=== PATIENT | female | born 1965 | race American Indian/Alaskan Native ===

== ENCOUNTER 2018-11-30 12:15 | Inpatient (IN) | payer OTHER ==
--- NOTE | 2018-11-30 12:24 | Emergency Department Report ---
- General Stated complaint: CHEST PAIN/SEIZURES Time Seen by Provider: 11/30/18 12:15 Source: patient Mode of arrival: Ambulatory - History of Present Illness Initial comments: Patient is a 53-year-old female that presents emergency room with complaints of weakness, dizziness, chest pain and elevated blood pressure. Patient was br ought in by EMS. Patient states her symptoms started 30 minutes ago. Patient denies inability to move any side of her body but complains more of a generalized weakness. Patient states she also feels slow to be able to respond. Patient states her chest pain is a 3 out of 10 and is in the center chest and nonradiating. Patient states the pain is better with rest and worse with exertion. MD Complaint: generalized weakness -: Sudden Location: generalized - Related Data Home Medications Medication Instructions Recorded Confirmed Last Taken Atenolol [Tenormin] 12.5 mg PO DAILY 11/30/18 11/30/18 1 Week Ago ~11/23/18 Allergies Allergy/AdvReac Type Severity Reaction Status Date / Time No Known Allergies Allergy Unverified 10/31/14 19:12 ED Review of Systems ROS: Stated complaint: CHEST PAIN/SEIZURES Other details as noted in HPI Constitutional: weakness. denies: chills, fever Eyes: denies: eye pain, eye discharge, vision change ENT: denies: ear pain, throat pain Respiratory: denies: cough, shortness of breath, wheezing Cardiovascular: chest pain. denies: palpitations Endocrine: no symptoms reported Gastrointestinal: denies: abdominal pain, nausea, diarrhea Genitourinary: denies: urgency, dysuria, discharge Musculoskeletal: denies: back pain, joint swelling, arthralgia Skin: denies: rash, lesions Neurological: weakness, vertigo. denies: headache, paresthesias Psychiatric: denies: anxiety, depression Hematological/Lymphatic: denies: easy bleeding, easy bruising ED Past Medical Hx - Past Medical History Previous Medical History?: Yes Hx Hypertension: Yes Additional medical history: IBS - Surgical History Past Surgical History?: Yes Additional Surgical History: tubal ligation - Family History Family history: no significant - Social History Smoking Status: Never Smoker Substance Use Type: Alcohol - Medications Home Medications: Home Medications Medication Instructions Recorded Confirmed Last Taken Type Atenolol [Tenormin] 12.5 mg PO DAILY 01/16/19 01/16/19 1 Week Ago History ~11/23/18 ED Physical Exam - General Limitations: No Limitations General appearance: alert, in no apparent distress - Head Head exam: Present: atraumatic, normocephalic - Eye Eye exam: Present: normal appearance - ENT ENT exam: Present: mucous membranes moist - Neck Neck exam: Present: normal inspection - Respiratory Respiratory exam: Present: normal lung sounds bilaterally. Absent: respiratory distress - Cardiovascular Cardiovascular Exam: Present: regular rate, normal rhythm. Absent: systolic mur mur, diastolic murmur, rubs, gallop - GI/Abdominal GI/Abdominal exam: Present: soft, normal bowel sounds - Extremities Exam Extremities exam: Present: normal inspection - Back Exam Back exam: Present: normal inspection - Neurological Exam Neurological exam: Present: alert, oriented X3 - Psychiatric Psychiatric exam: Present: normal affect, normal mood - Skin Skin exam: Present: warm, dry, intact, normal color. Absent: rash - Assessment Assessment Interval: Baseline - Level of Consciousness 1a. Level of Consciousness: alert/keenly responsive - LOC Questions 1b. LOC Questions: answers both correctly - LOC Command 1c. LOC Commands: performs tasks correctly - Best Gaze 2. Best Gaze: normal - Visual 3. Visual: no visual loss - Facial Palsy 4. Facial Palsy: normal symmetrical movement - Motor Arm 5b. Motor Arm Right: no drift 5a. Motor Arm Left: no drift - Motor Leg 6b. Motor Leg Right: no drift 6a. Motor Leg Left: no drift - Limb Ataxia 7. Limb Ataxia: absent - Sensory 8. Sensory: normal - Best Language 9. Best Language: no aphasia - Dysarthria 10. Dysarthria: normal - Extinction and Inattention 11. Extinction/Inattention: no abnormality - Scoring Total Score: 0 Stroke Severity: No Stroke Symptoms ED Course Vital Signs 11/30/18 11/30/18 11/30/18 12:37 12:45 12:51 Temperature 98.6 F Pulse Rate 76 80 69 Respiratory 14 16 14 Rate Blood Pressure 181/103 Blood Pressure 181/103 [Left] O2 Sat by Pulse 99 99 Oximetry 11/30/18 12:52 Temperature Pulse Rate Respiratory 14 Rate Blood Pressure Blood Pressure [Left] O2 Sat by Pulse 99 Oximetry - Reevaluation(s) Reevaluation #1: Initial evaluation done. Patient complaining of chest pain, dizziness and weakness. Culture initiated due the patient's symptoms and blood pressure 11/30/18 12:15 - Consultations Consultation #1: Neurologist consult. Discussed case with Dr. Avina and Dr. Avina see patient now 11/30/18 12:34 Dr. Hanna saw patient. Dr. Avina recommends admission and further stroke workup and x-ray patient had a TIA today and does not require TPA but will require further stroke workup 11/30/18 12:51 Consultation #2: Possible is counseled for admission. Hospitalist to admit patient and assume c are of patient. Bridging orders are placed 11/30/18 13:59 ED Medical Decision Making - Lab Data Result diagrams: 11/30/18 12:32 11/30/18 12:32 - EKG Data -: EKG Interpreted by Nd EKG shows normal: sinus rhythm, axis, intervals, QRS complexes, ST-T waves Rate: normal - Radiology Data Radiology results: report reviewed HEAD CT WITHOUT CONTRAST INDICATION: Neurologic deficits less than 6 hours or symptoms present upon awakening. 98N. COMPARISON: None similar. FINDINGS: Noncontrast head CT demonstrates symmetric ventricles and sulci without acute or recent infarct, hemorrhage, mass effect or midline shift. No abnormal extra-axial fluid collections. Posterior fossa structures and basilar cisterns within normal limits. Clear imaged paranasal sinuses. Few radiopaque dental material. Intact calvarium. Normal scalp soft tissues. CONCLUSION: No acute intracranial CT abnormality with few other findings, as above. MRI is more sensitive for detection of acute infarct and may be useful for further evaluation in the setting of a focal neurologic deficit. - Medical Decision Making Patient is a 53-year-old female that presents with chest pain, weakness, dizziness and elevated blood pressure. Patient's blood pressure improved on its own. Patella neuro consult. Neurologist states patient had a TIA and recommends admission. Labs unremarkable. Cardiac enzymes negative. Cardiac workup negative. Patient admitted to the hospitalist service for further evaluation treatment. She'll require stroke as well as a cardiac ACS workup. - Differential Diagnosis cp. acs. htn. tia. weakness Critical Care Time: Yes Critical care attestation.: If time is entered above; I have spent that time in minutes in the direct care of this critically ill patient, excluding procedure time. Critical Care Time: 55 minutes ED Disposition Clinical Impression: TIA (transient ischemic attack), Hypertensive emergency, no CHF, Dizziness Chest pain Qualifiers: Chest pain type: unspecified Qualified Code(s): R07.9 - Chest pain, unspecified Disposition: DC-09 OP ADMIT IP TO THIS HOSP Is pt being admited?: Yes Does the pt Need Aspirin: No Condition: Critical Time of Disposition: 13:54
--- NOTE | 2018-11-30 12:39 | Cat Scan Report ---
HEAD CT WITHOUT CONTRAST INDICATION: Neurologic deficits less than 6 hours or symptoms present upon awakening. 98N. COMPARISON: None similar. FINDINGS: Noncontrast head CT demonstrates symmetric ventricles and sulci without acute or recent infarct, hemorrhage, mass effect or midline shift. No abnormal extra-axial fluid collections. Posterior fossa structures and basilar cisterns within normal limits. Clear imaged paranasal sinuses. Few radiopaque dental material. Intact calvarium. Normal scalp soft tissues. CONCLUSION: No acute intracranial CT abnormality with few other findings, as above. MRI is more sensitive for detection of acute infarct and may be useful for further evaluation in the setting of a focal neurologic deficit. I phoned the above results to Dr. Lee in the ER, 12:28 PM, 11/30/2018 Thank you for the opportunity to participate in this patient's care.
[2018-11-30 12:41] LABS: Basophils # (Auto) 0.1 K/mm3 (0.0-0.1); Basophils % (Auto) 0.7 % (0.0-1.8); Eosinophils # (Auto) 0.2 K/mm3 (0.0-0.4); Eosinophils % (Auto) 2.3 % (0.0-4.3); Hematocrit 49.6 % (30.3-42.9); Hemoglobin 16.5 gm/dl (10.1-14.3); Lymphocytes # (Auto) 2.8 K/mm3 (1.2-5.4); Lymphocytes % (Auto) 36.7 % (13.4-35.0); Mean Corpuscular HGB Conc 33 % (30-34); Mean Corpuscular Volume 86 fl (79-97); Monocytes # (Auto) 0.6 K/mm3 (0.0-0.8); Monocytes % (Auto) 8.5 % (0.0-7.3); Platelet Count 279 K/mm3 (140-440); Red Blood Count 5.79 M/mm3 (3.65-5.03); Red Cell Distribution Width 14.1 % (13.2-15.2)
[2018-11-30 12:52] LABS: INR 0.9 (0.87-1.13); Thrombin Time 17.2 Sec. (15.1-19.6)
[2018-11-30 13:16] LABS: BUN/Creatinine Ratio 16; Blood Urea Nitrogen 11 mg/dL (7-17); Calcium 9.2 mg/dL (8.4-10.2); Hemolysis Index 8
[2018-11-30] MEDS ORDERED: ASPIRIN PO ONE (13:50)
--- NOTE | 2018-11-30 22:05 | History and Physical Report ---
History of Present Illness Date of examination: 11/30/18 Date of admission: 11/30/18 13:58 Chief complaint: Dizziness and high blood pressure for 1 day History of present illness: 53-year-old -[place] female with history of hypertension not taking her medications regularly comes in for dizziness and feeling weak. Code stroke was called by the emergency room. Tele neurologist felt that she had a TIA. On further history taking patient had dizziness and at the same time her blood pressure was 210/110. The dizziness resolved after the blood pressure was brought under reasonable control. No focal deficits. No slurred speech. No shortness of breath. Past Medical History Previous Medical History?: Yes Hx Hypertension: Yes Additional medical history: IBS Surgical History Past Surgical History?: Yes Additional Surgical History: tubal ligation Family History Family history: no significant Social History Smoking Status: Never Smoker Substance Use Type: Alcohol Medications Home Medications: Home Medications Medication Instructions Recorded Confirmed Last Taken Type Atenolol [Tenormin] 12.5 mg PO DAILY 11/30/18 11/30/18 1 Week Ago History ~11/23/18 Review of Systems ROS: Stated complaint: CHEST PAIN/SEIZURES Other details as noted in HPI Constitutional: weakness. denies: chills, fever Eyes: denies: eye pain, eye discharge, vision change ENT: denies: ear pain, throat pain Respiratory: denies: cough, shortness of breath, wheezing Cardiovascular: chest pain. denies: palpitations Endocrine: no symptoms reported Gastrointestinal: denies: abdominal pain, nausea, diarrhea Genitourinary: denies: urgency, dysuria, discharge Musculoskeletal: denies: back pain, joint swelling, arthralgia Skin: denies: rash, lesions Neurological: weakness, vertigo. denies: headache, paresthesias Psychiatric: denies: anxiety, depression Hematological/Lymphatic: denies: easy bleeding, easy bruising Medications and Allergies Allergies Allergy/AdvReac Type Severity Reaction Status Date / Time No Known Allergies Allergy Unverified 10/31/14 19:12 Home Medications Medication Instructions Recorded Confirmed Last Taken Type Atenolol [Tenormin] 12.5 mg PO DAILY 11/30/18 11/30/18 1 Week Ago History ~11/23/18 Exam - Physical Exam Narrative exam: Lying in bed comfortably - Constitutional Vitals: Temp Pulse Resp BP Pulse Ox 98 F 77 17 161/86 98 11/30/18 19:16 11/30/18 19:16 11/30/18 20:18 11/30/18 19:16 11/30/18 21:33 General appearance: Present: no acute distress, well-nourished - EENT Eyes: Present: PERRL ENT: hearing intact, clear oral mucosa - Neck Neck: Present: supple, normal ROM - Respiratory Respiratory effort: normal Respiratory: bilateral: CTA - Cardiovascular Heart rate: 78 Rhythm: regular Heart Sounds: Present: S1 & S2. Absent: rub, click - Extremities Extremities: no ischemia, pulses intact, pulses symmetrical, No edema Peripheral Pulses: within normal limits - Abdominal General gastrointestinal: Present: soft, non-tender, non-distended, normal bowel sounds Female genitourinary: Present: normal - Integumentary Integumentary: Present: clear, warm, dry - Musculoskeletal Musculoskeletal: gait normal, strength equal bilaterally - Psychiatric Psychiatric: appropriate mood/affect, intact judgment & insight - Neurologic Neurologic: CNII-XII intact, moves all extremities - Allied Health Allied health notes reviewed: nursing, case management Results - Labs CBC & Chem 7: 11/30/18 12:32 11/30/18 12:32 Labs: Laboratory Last Values WBC 7.6 K/mm3 (4.5-11.0) 11/30/18 12:32 RBC 5.79 M/mm3 (3.65-5.03) H 11/30/18 12:32 Hgb 16.5 gm/dl (10.1-14.3) H 11/30/18 12:32 Hct 49.6 % (30.3-42.9) H 11/30/18 12:32 MCV 86 fl (79-97) 11/30/18 12:32 MCH 29 pg (28-32) 11/30/18 12:32 MCHC 33 % (30-34) 11/30/18 12:32 RDW 14.1 % (13.2-15.2) 11/30/18 12:32 Plt Count 279 K/mm3 (140-440) 11/30/18 12:32 Lymph % (Auto) 36.7 % (13.4-35.0) H 11/30/18 12:32 Bacon % (Auto) 8.5 % (0.0-7.3) H 11/30/18 12:32 Eos % (Auto) 2.3 % (0.0-4.3) 11/30/18 12:32 Baso % (Auto) 0.7 % (0.0-1.8) 11/30/18 12:32 Lymph # 2.8 K/mm3 (1.2-5.4) 11/30/18 12:32 Bacon # 0.6 K/mm3 (0.0-0.8) 11/30/18 12:32 Eos # 0.2 K/mm3 (0.0-0.4) 11/30/18 12:32 Baso # 0.1 K/mm3 (0.0-0.1) 11/30/18 12:32 Seg Neutrophils % 51.8 % (40.0-70.0) 11/30/18 12:32 Seg Neutrophils # 4.0 K/mm3 (1.8-7.7) 11/30/18 12:32 PT 12.5 Sec. (12.2-14.9) 11/30/18 12:33 INR 0.90 (0.87-1.13) 11/30/18 12:33 APTT 20.0 Sec. (24.2-36.6) L 11/30/18 12:33 Thrombin Time 17.2 Sec. (15.1-19.6) 11/30/18 12:33 Sodium 139 mmol/L (137-145) 11/30/18 12:32 Potassium 4.1 mmol/L (3.6-5.0) 11/30/18 12:32 Chloride 103.1 mmol/L (98-107) 11/30/18 12:32 Carbon Dioxide 26 mmol/L (22-30) 11/30/18 12:32 Anion Gap 14 mmol/L 11/30/18 12:32 BUN 11 mg/dL (7-17) 11/30/18 12:32 Creatinine 0.7 mg/dL (0.7-1.2) 11/30/18 12:32 Estimated GFR > 60 ml/min 11/30/18 12:32 BUN/Creatinine Ratio 16 % 11/30/18 12:32 Glucose 109 mg/dL (65-100) H 11/30/18 12:32 POC Glucose 72 (70-105) 11/30/18 21:47 Lactic Acid 1.50 mmol/L (0.7-2.0) 11/30/18 12:42 Calcium 9.2 mg/dL (8.4-10.2) 11/30/18 12:32 Troponin T < 0.010 ng/mL (0.00-0.029) 11/30/18 12:32 Short CBC 11/30/18 Range/Units 12:32 WBC 7.6 (4.5-11.0) K/mm3 Hgb 16.5 H (10.1-14.3) gm/dl Hct 49.6 H (30.3-42.9) % Plt Count 279 (140-440) K/mm3 BMP 11/30/18 12:32 Sodium 139 Potassium 4.1 Chloride 103.1 Carbon Dioxide 26 BUN 11 Creatinine 0.7 Glucose 109 H Calcium 9.2 Cardiac Enzymes 11/30/18 Range/Units 12:32 Troponin T < 0.010 (0.00-0.029) ng/mL - Imaging and Cardiology EKG: report reviewed Imaging and Cardiology: EKG Normal sinus rhythm 79/m old anterior infarct. No LVH CT of the head CONCLUSION: No acute intracranial CT abnormality with few other findings, as above. MRI is more sensitive for detection of acute infarct and may be useful for further evaluation in the setting of a focal neurologic deficit. Assessment and Plan Advance Directives: Yes (full code) VTE prophylaxis?: Chemical Plan of care discussed with patient/family: Yes - Patient Problems (1) Hypertensive emergency Current Visit: Yes Status: Acute Plan to address problem: Patient needs to be compliant Lisinopril 20 mg once a day amlodipine 10 mg once a day and metoprolol was increased to 25 mg every 12. Hydralazine 10 mg when necessary every 3 hours. (2) Dizziness Current Visit: Yes Status: Acute Plan to address problem: Secondary to uncontrolled hypertension No TIA No need for MRI Patient improved dramatically while in the emergency room (3) DVT prophylaxis Current Visit: Yes Status: Acute Plan to address problem: On Lovenox and GI prophylaxis
[2018-11-30] MEDS ORDERED: IBUPROFEN PO PRN (22:09)
[2018-11-30] MEDS ORDERED: DILAUDID IV PRN (22:09)
[2018-11-30] MEDS ORDERED: SODIUM CHLORIDE FLUSH SYRINGE 10 ML IV PRN (22:09)
[2018-11-30] MEDS ORDERED: TYLENOL PO PRN (22:09)
[2018-11-30] MEDS ORDERED: ZOFRAN IV PRN (22:09)
[2018-11-30] MEDS ORDERED: ZESTRIL PO SCH (22:11)
[2018-11-30] MEDS ORDERED: APRESOLINE IV PRN (22:13)
[2018-11-30] MEDS: LOPRESSOR PO SCH (22:42)
[2018-12-01 07:10] LABS: BUN/Creatinine Ratio 17; Blood Urea Nitrogen 10 mg/dL (7-17); Calcium 8.9 mg/dL (8.4-10.2); Hemolysis Index 11
[2018-12-01] MEDS ORDERED: PEPCID PO SCH (10:00)
[2018-12-01] MEDS ORDERED: NORVASC PO SCH (10:00)
[2018-12-01] MEDS ORDERED: SODIUM CHLORIDE FLUSH SYRINGE 10 ML IV SCH (10:00)
[2018-12-01 10:33] VITALS: BP 148/90
[2018-12-01] MEDS: LOPRESSOR PO SCH (12:27)
--- NOTE | 2018-12-01 15:47 | Discharge Summary ---
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 She presented to [facility] ED with dizziness and feeling weak x 1 week. Code stroke was called in the emergency room. Tele neurologist felt that she had a TIA. On further history taking patient had dizziness and at the same time her blood pressure was 210/110. The dizziness resolved after the blood pressure was brought under reasonable control. No focal deficits. No slurred speech. No shortness of breath. -Hypertensive emergency Current Visit: Yes Status: Acute Plan to address problem: Patient needs to be compliant Lisinopril 20 mg once a day amlodipine 10 mg once a day and metoprolol was increased to 25 mg every 12. Hydralazine 10 mg when necessary every 3 hours. -Dizziness Current Visit: Yes Status: Acute Plan to address problem: Secondary to uncontrolled hypertension No TIA, no deficits No need for MRI Patient improved dramatically while in the emergency room -DVT prophylaxis Current Visit: Yes Status: Acute Plan to address problem: On Lovenox and GI prophylaxis -Hemoglobin a1c 6.6 without hyperglycemia==>Outpatient evaluation for Diabetes, BG log/diary, her Blood glucose has been normal here Disposition: DC-01 TO HOME OR SELFCARE Time spent for discharge: 35 minutes Core Measure Documentation - Palliative Care Palliative Care/ Comfort Measures: Not Applicable - Core Measures Any of the following diagnoses?: none - VTE Discharge Requirements Deep Vein Thrombosis/Pulmonary Embolism Present on Admission: No Has pt received <5 days of overlap therapy or INR<2.0: No Anticoagulant overlap therapy prescribed at discharge: No Contraindication No Overlap Therapy order at DC: Not Indicated Exam - Physical Exam Narrative exam: Gen: WDWN, NAD, Awake, Alert, Orientated HEENT: NCAT, EOMI, PERRL, OP Clear Neck: supple, no adenopathy, no thyromegaly, no JVD CVS/Heart: RRR, normal S1S2, pulses present bilaterally Chest/Lungs: CTA B, Symmetrical chest expansion, good air entry bilaterally GI/Abdomen: soft, NTND, good bowel sounds, no guarding or rebound /Bladder: no suprapubic tenderness, no CVA or paraspinal tenderness Extermity/Skin: no c/c/e, no obvious rash MSK: FROM x 4 Neuro: CN 2-12 grossly intact, no new focal deficits Psych: calm - Constitutional Vitals: Temp Pulse Resp BP Pulse Ox 97.8 F 61 16 148/90 100 12/01/18 09:09 12/01/18 09:09 12/01/18 09:09 12/01/18 09:09 12/01/18 09:42 Plan Activity: other (no strenous activity, including work until cleared by PCP) Diet: low salt Special Instructions: record daily BP diary, record blood sugar diary (get Glucometer OTC and check blood sugars time times a day: fasting, lunch and dinner) Additional Instructions: see PCP Dr[facility] Arre[facility] to work. Take blood pressure diary and blood sugar diary to him. Tell your PCP that your hemoglobin A1c was 6.6 and he may want to repeat it. Follow up with: PRIMARY CAREMD [Primary Care Provider] - 7 Days [facility] [Provider Group] - 7 Days Prescriptions: amLODIPine [Norvasc] 10 mg PO QDAY #30 tablet Metoprolol [Lopressor TAB] 25 mg PO BID #60 tablet
== END 2018-12-01 18:30 | disposition home or self-care (01) | DRG 305 ==
LOC: ED 12:15 → 4A 13:58
PROVIDERS: ADMIT Internal Medicine; ATTEND Internal Medicine
DX: I16.1 Hypertensive emergency (principal); I10 Essential (primary) hypertension; K58.9 Irritable bowel syndrome, unspecified; R07.9 Chest pain, unspecified; Z98.51 Tubal ligation status; Z72.89 Other problems related to lifestyle; Z79.899 Other long term (current) drug therapy
CPT/HCPCS: 36415; 70450; 80048; 82140; 82962; 83036; 84484; 85025; 85610; 85670; 85730; 93005; 93010; G0378; J1170

== ENCOUNTER 2019-05-02 13:04 | Emergency (ER) | payer OTHER ==
[2019-05-02] MEDS ORDERED: BABY ASPIRIN PO ONE (13:39)
[2019-05-02] MEDS ORDERED: ULTRAM PO ONE (13:40)
[2019-05-02] MEDS ORDERED: ALUM-MAG HYDROX-SIMETH 200-200-20MG/5ML PO ONE (13:40)
--- NOTE | 2019-05-02 13:43 | Emergency Department Report ---
ED Chest Pain HPI - General Chief Complaint: Chest Pain Stated Complaint: CHEST PAIN Time Seen by Provider: 05/02/19 13:33 Source: patient Mode of arrival: Ambulatory Limitations: No Limitations - History of Present Illness Initial Comments: Mrs. Felder is a 53 yo female with hx of HTN and prediabetes who presents with chest pain since last night. Persistent chest pain at rest in left chest radiating to left upper back. She had stress test and echo scheduled at [facility]. 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 Persistent dull pain with sensation of indigestion. MD Complaint: chest pain -: Gradual, Last night Onset: during rest Pain Location: left chest Pain Radiation: back Severity: severe Quality: aching Consistency: constant Improves With: nothing Worsens With: nothing - Related Data Previous Rx's Medication Instructions Recorded Last Taken Type Acetaminophen [Acetaminophen TAB] 650 mg PO Q4H PRN #15 tablet 12/01/18 Unknown Rx Famotidine [Pepcid] 20 mg PO BID #30 tablet 12/01/18 Unknown Rx Metoprolol [Lopressor TAB] 25 mg PO BID #60 tablet 12/01/18 Unknown Rx amLODIPine [Norvasc] 10 mg PO QDAY #30 tablet 12/01/18 Unknown Rx Ciprofloxacin HCl [Cipro] 500 mg PO Q12H #20 tablet 03/21/19 Unknown Rx Dicyclomine [Bentyl] 20 mg PO Q6H PRN #20 tablet 03/21/19 Unknown Rx Ondansetron [Zofran Odt] 4 mg PO Q6HR #15 tab.rapdis 03/21/19 Unknown Rx metroNIDAZOLE [Flagyl] 500 mg PO Q8HR #30 tablet 03/21/19 Unknown Rx Allergies Allergy/AdvReac Type Severity Reaction Status Date / Time lisinopril AdvReac Unknown Verified 03/21/19 11:50 Heart Score - HEART Score History: Slightly suspicious EKG: Normal Age: 45-65 Risk factors: 1-2 risk factors Troponin: < normal limit HEART Score: 2 ED Review of Systems ROS: Stated complaint: CHEST PAIN Other details as noted in HPI Comment: All other systems reviewed and negative Constitutional: denies: fever, malaise Cardiovascular: chest pain ED Past Medical Hx - Past Medical History Previous Medical History?: Yes Hx Hypertension: Yes Hx Congestive Heart Failure: No Hx Diabetes: No Hx Asthma: No Hx COPD: No Additional medical history: IBS - Surgical History Past Surgical History?: Yes Additional Surgical History: tubal ligation, bilateral shoulder surgery - Social History Smoking Status: Never Smoker Substance Use Type: Alcohol - Medications Home Medications: Home Medications Medication Instructions Recorded Confirmed Last Taken Type Acetaminophen [Acetaminophen TAB] 650 mg PO Q4H PRN #15 tablet 12/01/18 Unknown Rx Famotidine [Pepcid] 20 mg PO BID #30 tablet 12/01/18 Unknown Rx Metoprolol [Lopressor TAB] 25 mg PO BID #60 tablet 12/01/18 Unknown Rx amLODIPine [Norvasc] 10 mg PO QDAY #30 tablet 12/01/18 Unknown Rx Ciprofloxacin HCl [Cipro] 500 mg PO Q12H #20 tablet 03/21/19 Unknown Rx Dicyclomine [Bentyl] 20 mg PO Q6H PRN #20 tablet 03/21/19 Unknown Rx Ondansetron [Zofran Odt] 4 mg PO Q6HR #15 tab.rapdis 03/21/19 Unknown Rx metroNIDAZOLE [Flagyl] 500 mg PO Q8HR #30 tablet 03/21/19 Unknown Rx ED Physical Exam - General Limitations: No Limitations General appearance: alert, in no apparent distress - Head Head exam: Present: atraumatic, normocephalic - Eye Eye exam: Present: normal appearance - ENT ENT exam: Present: mucous membranes moist - Neck Neck exam: Present: normal inspection, full ROM - Respiratory Respiratory exam: Present: normal lung sounds bilaterally. Absent: respiratory distress, wheezes, rales, rhonchi - Cardiovascular Cardiovascular Exam: Present: regular rate, normal rhythm, normal heart sounds. Absent: systolic murmur, diastolic murmur, rubs, gallop - GI/Abdominal GI/Abdominal exam: Present: soft, normal bowel sounds. Absent: distended, tenderness, guarding - Extremities Exam Extremities exam: Present: normal inspection - Back Exam Back exam: Present: normal inspection - Neurological Exam Neurological exam: Present: alert, oriented X3 - Psychiatric Psychiatric exam: Present: normal affect, normal mood - Skin Skin exam: Present: warm, dry, intact, normal color. Absent: rash ED Course Vital Signs 05/02/19 05/02/19 13:12 14:13 Temperature 97.6 F Pulse Rate 71 56 L Respiratory 18 13 Rate Blood Pressure 194/97 Blood Pressure 196/101 [Right] O2 Sat by Pulse 98 99 Oximetry ED Medical Decision Making - Lab Data Result diagrams: 05/02/19 13:44 05/02/19 13:44 - EKG Data 05/02/19 13:42 EKG obtained 1313 Normal sinus rhythm rate 70 beats a minute AXIS NORMAL INTERVALS T WAVES IN THE ANTERIOR LEADS NO ST ELEVATION NONSEPific T-WAVE PATTERN - Radiology Data Radiology results: report reviewed interpreted by me: Tortuous aorta, right lower lobe atelectasis versus scarring AP portable chest personal interpretation no infiltrates no pneumothorax - Medical Decision Making Mrs. Felder presents with chest pain atypical for ACS. Persistent for the past 12 hours at rest. HEART score 2. She will arrange outpatient stress test and echo at the [facility]. Repeat BP 161/92 without treatment, prior to discharge. She will continue asa therapy.. Troponin negative. Critical care attestation.: If time is entered above; I have spent that time in minutes in the direct care of this critically ill patient, excluding procedure time. ED Disposition Clinical Impression: Chest pain, Hypertensive urgency Disposition: DC-01 TO HOME OR SELFCARE Is pt being admited?: No Does the pt Need Aspirin: No Condition: Stable Instructions: Chest Pain (ED) Additional Instructions: Please call your doctor at [facility] for stress test and echo.
[2019-05-02 14:05] LABS: Basophils # (Auto) 0.1 K/mm3 (0.0-0.1); Eosinophils # (Auto) 0.2 K/mm3 (0.0-0.4); Eosinophils % (Auto) 2.1 % (0.0-4.3); Hematocrit 48.7 % (30.3-42.9); Hemoglobin 16.2 gm/dl (10.1-14.3); Lymphocytes # (Auto) 2.4 K/mm3 (1.2-5.4); Lymphocytes % (Auto) 32.2 % (13.4-35.0); Mean Corpuscular HGB Conc 33 % (30-34); Mean Corpuscular Volume 87 fl (79-97); Monocytes # (Auto) 0.6 K/mm3 (0.0-0.8); Monocytes % (Auto) 8.4 % (0.0-7.3); Platelet Count 304 K/mm3 (140-440); Red Blood Count 5.61 M/mm3 (3.65-5.03); Red Cell Distribution Width 14.3 % (13.2-15.2)
[2019-05-02 14:22] LABS: BUN/Creatinine Ratio 10; Blood Urea Nitrogen 8 mg/dL (7-17); Calcium 9.2 mg/dL (8.4-10.2); Hemolysis Index 6
--- NOTE | 2019-05-02 14:44 | XRay Report ---
AP CHEST: HISTORY: chest pain AP view of the chest demonstrates a normal mediastinal and cardiac contour with clear lungs and normal bony and soft tissue structures. IMPRESSION: Unremarkable AP chest.
[2019-05-02 15:09] VITALS: BP 161/89
== END 2019-05-03 12:59 | disposition home or self-care (01) ==
LOC: ED 13:04
DX: I16.0 Hypertensive urgency (principal); I10 Essential (primary) hypertension; Z98.51 Tubal ligation status; Z98.890 Other specified postprocedural states; Z79.899 Other long term (current) drug therapy; Z88.8 Allergy status to other drugs, medicaments and biological substances
CPT/HCPCS: 36415; 71045; 80048; 84484; 85025; 93005; 93010; 99284